=== PATIENT | female | born 1995 | race Two or more races ===

== ENCOUNTER 2018-04-30 16:14 | Emergency (ER) | payer SELFPAY ==
[~2018-04-30] VITALS: Ht 160 cm; Wt 60.8 kg
[2018-04-30 16:25] VITALS: BP 107/66
--- NOTE | 2018-04-30 17:01 | Emergency Room Report ---
History of Present Illness General Chief Complaint: Skin Rash/Abscess Source: Patient Present Illness HPI 22-year-old female patient presents ER complaining of intensely pruritic rash over entire body for the past week. States that she thinks she "have scabies" . Patient currently being seen in ER with her friend with similar symptoms. Reports extremely pruritic rash over bilateral lower extremities feet and abdomen. Denies fever, chest pain, shortness of breath. Denies vomiting chest pain. Denies history of cardiac disease. Reports not taking any medication for relief of symptoms. Reports no bleeding or drainage. Allergies: Coded Allergies: No Known Allergies (Unverified , 04/30/18) Patient History Past Medical History: see triage record Last Menstrual Period: 3 weeks Now: No Reviewed Nursing Documentation: PMH: Agreed; PSxH: Agreed Nursing Documentation-PMH Past Medical History: No Stated History Review of Systems All Other Systems: negative except mentioned in HPI Physical Exam Vital Signs Date Time Temp Pulse Resp B/P (MAP) Pulse Ox O2 Delivery O2 Flow Rate FiO2 04/30/18 16:16 98.1 73 14 107/66 98 Room Air 98.1 Sp02 EP Interpretation: reviewed, normal General Appearance: well appearing, no apparent distress, alert, GCS 15, non- toxic Head: normocephalic, atraumatic Eyes: bilateral eye normal inspection, bilateral eye PERRL ENT: hearing grossly normal, normal pharynx, no angioedema, normal voice, uvula midline, moist mucus membranes Neck: full range of motion Respiratory: lungs clear, normal breath sounds, no rhonchi, no respiratory distress, no accessory muscle use, no wheezing, speaking full sentences Musculoskeletal: back normal, digits/nails normal, gait/station normal, normal range of motion, non-tender Neurologic: alert, oriented x3, responsive, motor strength/tone normal, sensory intact Psychiatric: mood/affect normal Skin: other - erythematous papules noted over her body, no crusting or drainage , no surrounding erythema or edema, no target sign, excoriations noted Medical Decision Making PA Attestation Dr. Staples is my supervising Physician whom patient management has been discussed with.Dr. Staples is my supervising Physician whom patient management has been discussed with. Diagnostic Impression: Primary Impression: Rash and other nonspecific skin eruption ER Course Pt. presents to the ED c/o "I think I have scabies". Ddx considered but are not limited to atopic dermatitis, bug bite, urticaria, allergic reaction scabies. Vital signs: are WNL, pt. is afebrile ER COURSE: Physical exam shows rash consistent with possible scabies, will provide Permethrin for treatment. Advised patient on use of Claritin during the day and Benadryl at night for itching symptoms, SE drowsiness, do not take prior to drinking, driving, operating heavy machinery.. Do not scratch, apply cool compresses to affected area. Followup with PCP and request referral to derm. Advised patient to wash all clothing and bedding. DISCHARGE: -Rx given for Permethrin -Patient instructed to apply cool compresses to affected area. At this time pt. is stable for d/c to home. Patient resting comfortably, in no acute distress, nontoxic appearing. Care plan and follow up instructions have been discussed with the patient prior to discharge. Patient provided with printed patient care instructions, and any necessary prescriptions. Patient instructed to follow-up with primary care provider in 3 - 5 days. Patient questions asked and answered. Patient reports understanding and agreement to treatment plan. ER precautions given. Patient instructed to return to ER immediately for any new or worsening of symptoms including but not limited to increasing SOB, persistent fever. - Please note that this Emergency Department Report was dictated using [employer] examiner technology software, occasionally this can lead to erroneous entry secondary to interpretation by the dictation equipment. Last Vital Signs Date Time Temp Pulse Resp B/P (MAP) Pulse Ox O2 Delivery O2 Flow Rate FiO2 04/30/18 16:16 98.1 73 14 107/66 98 Room Air 98.1 Disposition: HOME, SELF-CARE Condition: Stable Scripts Permethrin* (ELIMITE*) 60 Gm Cream..g. 1 APPLIC TOPIC ONCE, #60 GM 0 Refills Apply cream from head to toe; leave on for 8-14 hours before washing off with water; may reapply in 1 week if live mites appear. Prov: Ja Damon 04/30/18 Patient Instructions: Bedbugs, [id number], Scabies, Pediatric Additional Instructions: Followup with primary care provider in 3 -5 days. Request referral to dermatology. Do not scratch or itch. Apply cool compresses to affected area. Take medications as directed. SE Benadryl drowsiness, do not take prior to drinking, driving, operating heavy machinery. Wash all clothing and bedding. Patient questions asked and answered. ER precautions given, patient instructed to return to ER immediately for any new or worsening of symptoms. [facility] [place] [facility] Ja Damon Apr 30, 2018 17:01
[2018-04-30] MEDS ORDERED: PERMETHRIN60 GM TOPIC (17:08)
[2018-04-30 17:26] VITALS: BP 111/71
== END 2018-04-30 17:29 | disposition home or self-care (01) ==
LOC: EMR 17:15
DX: R21 Rash and other nonspecific skin eruption (principal)
CPT/HCPCS: 99283